=== PATIENT | female | born 1975 | race Caucasian/White ===

== ENCOUNTER 2018-11-09 02:22 | Outpatient (CLI) | payer BC, SELFPAY ==
[2018-11-09 11:05] LABS: Albumin 3.9 g/dL (3.4-5.0); Alkaline Phosphatase 64 U/L (46-116); BUN 14 mg/dL (7-18); Bilirubin, Total 0.5 mg/dL (0.2-1.0); CREATININE 0.99 mg/dL (0.55-1.02); Calcium 8.8 mg/dL (8.5-10.1); Cholesterol 194 mg/dL (50-200); Glucose 113 mg/dL (70-100); HDL Cholesterol 58 mg/dL (40-60); LDL CHOLESTEROL 119 mg/dL (<100); Total Protein 7.8 g/dL (6.4-8.2); Triglyceride 55 mg/dL (30-150)
[2018-11-09 11:06] LABS: ALT 16 U/L (12-78); AST 16 U/L (15-37); Anion Gap 7.9 mmol/L (3-11); CO2 30.1 mmol/L (21.0-32.0); Chloride 102 mmol/L (98-107); Potassium 4.4 mmol/L (3.5-5.1); Sodium 140 mmol/L (136-145)
== END 2018-11-09 02:42 ==
DX: Z00.00 Encounter for general adult medical examination without abnormal findings (principal); E03.9 Hypothyroidism, unspecified; F32.9 Major depressive disorder, single episode, unspecified; Z13.220 Encounter for screening for lipoid disorders
CPT/HCPCS: 36415; 80053; 80061; 83721

== ENCOUNTER 2019-02-18 13:50 | Emergency (ER) | payer BC, SELFPAY ==
[2019-02-18 13:54] VITALS: BP 156/93; PULSE 116; RESP 20; TEMP 37.2; O2SAT 100
--- NOTE | 2019-02-18 14:03 | W.ED.GENAD ---
Discharge Plan Disposition Patient Disposition: HOME Condition: Improving Discharge Details Chief Complaint: RespSymp Clinical Impression: Acute bronchitis Primary Care Provider: Bren Carrillo ED Provider: Vic Gregory Home Meds and New Rx's Prescriptions: New guaifenesin [Mucinex] 600 mg tablet extended release 12hr 600 mg PO Q12H PRN (Reason: cold symptoms) Qty: 10 RF: 0 benzonatate [Tessalon Perles] 100 mg capsule 100 mg PO TID PRN (Reason: cough) Qty: 20 RF: 0 azithromycin 250 mg tablet See Rx Instructions .ROUTE .COMPLEX Qty: 6 RF: 0 No Action acetaminophen [Tylenol Extra Strength] 500 MG tablet 1,000 mg PO Q4H PRN RF: 0 ibuprofen 200 MG tablet 3 - 4 tab PO BID PRNRF: 0 multivitamin [Daily Multi-Vitamin] 1 EACH tablet 1 ea PO DAILY RF: 0 triamcinolone acetonide 80 GM ointment 80 gm Topical BID Qty: 1 RF: 1 bupropion HCl [Wellbutrin SR] 150 mg tablet sustained-release 12 hr 150 mg PO DAILY Qty: 30 RF: 11 hydroxyzine HCl 25 mg tablet 25 mg PO TID PRN (Reason: itching) Qty: 30 RF: 1 Discharge Instructions Instructions: Acute Bronchitis (ED) Additional Instructions: Follow-up with regular doctor if not improving in 5 to 7 days time. May use the provided albuterol as needed during times of illness. 1 to 2 puffs every 4 hours. Use with spacer. May use Tessalon as needed for cough control as well as Mucinex. Take antibiotics as prescribed. Please do not use your hydroxyzine at the same time is taking azithromycin. Medical Decision Making 44-year-old female presents with 1 week of cough, congestion, production sputum. Ongoing paroxysms of cough today with increasing chest congestion. She is afebrile with normal oxygenation. Lungs are clear without rhonchi. Do not feel chest x-ray will alter management. Discussed her that I feel that she will benefit from an inhaler to help in aborting paroxysms of cough. We will add both Mucinex, cough suppressant, a course of azithromycin to cover atypical infections. She is stable for outpatient management. HPI General Mode of arrival: ambulatory. Date/Time Provider Initiated Documentation: 02/18/19 13:55. Limitations to Documentation: no limitations. Information obtained by: patient. History of Present Illness 44 year old F presents to the emergency department with the chief complaint of Cough and congestion with production of sputum for 1wk, described as moderate, Quality is described as dull and constant, and is localized to the chest. Patient reports no radiation. Patient started experiencing this day(s) and it has been intermittent. No relieving factors improve symptom(s), No exacerbating factors reported . Patient notes cough and fever/chills; denies shortness of breath and syncope. Patient did receive the following treatments prior to arrival, other Related Data Home Medications Medication Instructions Recorded Confirmed acetaminophen [Tylenol Extra 1,000 mg PO Q4H PRN tab-cap 03/19/16 02/18/19 Strength] ibuprofen 3 - 4 tab PO BID PRN 04/15/16 02/18/19 multivitamin [Multi-Vitamin Daily] 1 ea PO DAILY 02/19/17 02/18/19 triamcinolone acetonide 80 gm TOPICAL BID #1 tube 09/25/17 02/18/19 bupropion HCl SR 150 mg tablet,12 150 mg PO DAILY #30 tab 01/13/19 02/18/19 hr sustained-release hydroxyzine HCl 25 mg tablet 25 mg PO TID PRN #30 tab 01/13/19 02/18/19 azithromycin See Rx Instructions .ROUTE 02/18/19 .COMPLEX #6 tab benzonatate [Tessalon Perles] 100 mg PO TID PRN #20 cap 02/18/19 guaifenesin [Mucinex] 600 mg PO Q12H PRN #10 tab 02/18/19 Previous Rx's Medication Instructions Recorded triamcinolone acetonide 80 gm TOPICAL BID #1 tube 09/25/17 bupropion HCl SR 150 mg tablet,12 150 mg PO DAILY #30 tab 01/13/19 hr sustained-release hydroxyzine HCl 25 mg tablet 25 mg PO TID PRN #30 tab 01/13/19 azithromycin See Rx Instructions .ROUTE 02/18/19 .COMPLEX #6 tab benzonatate [Tessalon Perles] 100 mg PO TID PRN #20 cap 02/18/19 guaifenesin [Mucinex] 600 mg PO Q12H PRN #10 tab 02/18/19 Allergies Allergy/AdvReac Type Severity Reaction Status Date / Time codeine AdvReac Intermediate Dizziness/L Verified 02/18/19 13:56 ightheade escitalopram AdvReac Intermediate Low Labido Verified 02/18/19 13:56 General Stated Complaint: RespSymp JARED: 3 Review of Systems Review of Systems Production of yellow sputum, subjective fever and chills. Still taking liquids and solids by mouth at difficulty. No chest pain or shortness of breath. Sick systems reviewed and otherwise negative [facility] Medical History Healthcare maintenance (Acute) Right hip pain (Chronic 04/15/16) Nonintractable episodic headache (Acute 06/17/16) Dermatitis (Chronic 09/18/16) Depression (Chronic 09/18/16) Contusion of right knee, subsequent encounter (Suspected 09/09/16) Cervical radiculopathy (Chronic 07/21/14) JAILENE I (cervical intraepithelial neoplasia I) (Acute) Abdominal bloating (Chronic 11/20/16) Surgical History Ligation of fallopian tube Tooth extraction Family History Mother No problems noted. Father Alcohol abuse Arthritis Cancer Brother No problems noted. Brother No problems noted. Brother Diabetes Depression Neoplasm Stroke Maternal Grandfather No problems noted. Paternal Grandfather No problems noted. Maternal Grandmother No problems noted. Paternal Grandmother No problems noted. 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 and animals: Yes Pets and animals: dog(s) Sexually active: Yes What is your relationship status?: living with partner How often do you talk on the phone with friends or family?: once per week How often do you get together with friends or relatives?: once per week How often do you attend worship or gnosticism services?: decline to answer Do you belong to any clubs or organized social groups?: no Panel score (0-1 are the most socially isolated patients): 1 What type of physical activity do you participate in: walking Duration: < 15 minutes/day Frequency: 3-4 times per week Melanie/Latter Day: None Special melanie needs: No Do you feel safe at home: Yes Do you feel safe in your relationship?: Yes Exam Narrative Exam Narrative: GEN: awake, alert, oriented 3. Pleasant, well groomed, interactive. HEAD: Normocephalic, atraumatic ENT: Mucous membranes moist, oropharynx unremarkable, External ear exam unremarkable EYES: PERRL, EOMI NECK: Full ROM, no NOAH, no menigismus CHEST/RESP: Nontender, clear to auscultation bilateral, cough noted, no wheeze CARDIOVASCULAR: Not tachycardic at the time of my exam RRR, no murmur, rub rudy. 2+ Rad pulse bilateral ABDOMEN: Soft, nontender, no mass. +Bowel sounds EXT: Full ROM, no edema, no rash Neuro: Grossly normal neurologic exam, conversant, interactive. Psych: Speech fluent, thoughts congruent, affect normal Course Vital Signs Temperature 37.2 C 02/18/19 13:54 Pulse 116 H 02/18/19 13:54 Respiratory Rate 20 02/18/19 13:54 Blood Pressure 156/93 H 02/18/19 13:54 Pulse Oximetry 100 02/18/19 13:54 Temperature 37.2 C 02/18/19 13:54 Temperature Source Temporal Artery Scan 02/18/19 13:54 Pulse 116 H 02/18/19 13:54 Respiratory Rate 20 02/18/19 13:54 Respiratory Effort Non-Labored 02/18/19 13:56 Respiratory Depth Normal 02/18/19 13:56 Blood Pressure 156/93 H 02/18/19 13:54 Blood Pressure Position Sitting 02/18/19 13:54 Pulse Oximetry 100 02/18/19 13:54 Oxygen Delivery Method Room Air 02/18/19 13:54 Oxygen Flow Rate 0 02/18/19 13:54
--- NOTE | 2019-02-18 14:07 | ED.GENADUL_ITS ---
Discharge Plan Disposition Patient Disposition: HOME Condition: Improving Discharge Details Chief Complaint: RespSymp Clinical Impression: Acute bronchitis Primary Care Provider: Bren Carrillo ED Provider: Vic Gregory Home Meds and New Rx's Prescriptions: New guaifenesin [Mucinex] 600 mg tablet extended release 12hr 600 mg PO Q12H PRN (Reason: cold symptoms) Qty: 10 RF: 0 benzonatate [Tessalon Perles] 100 mg capsule 100 mg PO TID PRN (Reason: cough) Qty: 20 RF: 0 azithromycin 250 mg tablet See Rx Instructions .ROUTE .COMPLEX Qty: 6 RF: 0 No Action acetaminophen [Tylenol Extra Strength] 500 MG tablet 1,000 mg PO Q4H PRN RF: 0 ibuprofen 200 MG tablet 3 - 4 tab PO BID PRNRF: 0 multivitamin [Daily Multi-Vitamin] 1 EACH tablet 1 ea PO DAILY RF: 0 triamcinolone acetonide 80 GM ointment 80 gm Topical BID Qty: 1 RF: 1 bupropion HCl [Wellbutrin SR] 150 mg tablet sustained-release 12 hr 150 mg PO DAILY Qty: 30 RF: 11 hydroxyzine HCl 25 mg tablet 25 mg PO TID PRN (Reason: itching) Qty: 30 RF: 1 Discharge Instructions Instructions: Acute Bronchitis (ED) Additional Instructions: Follow-up with regular doctor if not improving in 5 to 7 days time. May use the provided albuterol as needed during times of illness. 1 to 2 puffs every 4 hours. Use with spacer. May use Tessalon as needed for cough control as well as Mucinex. Take antibiotics as prescribed. Please do not use your hydroxyzine at the same time is taking azithromycin. Medical Decision Making 44-year-old female presents with 1 week of cough, congestion, production sputum. Ongoing paroxysms of cough today with increasing chest congestion. She is afebrile with normal oxygenation. Lungs are clear without rhonchi. Do not feel chest x-ray will alter management. Discussed her that I feel that she will benefit from an inhaler to help in aborting paroxysms of cough. We will add both Mucinex, cough suppressant, a course of azithromycin to cover atypical infections. She is stable for outpatient management. HPI General Mode of arrival: ambulatory . Date/Time Provider Initiated Documentation: 02/18/19 13:55 . Limitations to Documentation: no limitations . Information obtained by: patient . History of Present Illness 44 year old F presents to the emergency department with the chief complaint of Cough and congestion with production of sputum for 1wk, described as moderate, Quality is described as dull and constant, and is localized to the chest. Patient reports no radiation. Patient started experiencing this day(s) and it has been intermittent. No relieving factors improve symptom(s), No exacerbating factors reported . Patient notes cough and fever/chills; denies shortness of breath and syncope. Patient did receive the following treatments prior to arrival, other Related Data Home Medications Medication Instructions Recorded Confirmed acetaminophen [Tylenol Extra 1,000 mg PO Q4H PRN tab-cap 03/19/16 02/18/19 Strength] ibuprofen 3 - 4 tab PO BID PRN 04/15/16 02/18/19 multivitamin [Multi-Vitamin Daily] 1 ea PO DAILY 02/19/17 02/18/19 triamcinolone acetonide 80 gm TOPICAL BID #1 tube 09/25/17 02/18/19 bupropion HCl SR 150 mg tablet,12 150 mg PO DAILY #30 tab 01/13/19 02/18/19 hr sustained-release hydroxyzine HCl 25 mg tablet 25 mg PO TID PRN #30 tab 01/13/19 02/18/19 azithromycin See Rx Instructions .ROUTE 02/18/19 .COMPLEX #6 tab benzonatate [Tessalon Perles] 100 mg PO TID PRN #20 cap 02/18/19 guaifenesin [Mucinex] 600 mg PO Q12H PRN #10 tab 02/18/19 Previous Rx's Medication Instructions Recorded triamcinolone acetonide 80 gm TOPICAL BID #1 tube 09/25/17 bupropion HCl SR 150 mg tablet,12 150 mg PO DAILY #30 tab 01/13/19 hr sustained-release hydroxyzine HCl 25 mg tablet 25 mg PO TID PRN #30 tab 01/13/19 azithromycin See Rx Instructions .ROUTE 02/18/19 .COMPLEX #6 tab benzonatate [Tessalon Perles] 100 mg PO TID PRN #20 cap 02/18/19 guaifenesin [Mucinex] 600 mg PO Q12H PRN #10 tab 02/18/19 Allergies Allergy/AdvReac Type Severity Reaction Status Date / Time codeine AdvReac Intermediate Dizziness/L Verified 02/18/19 13:56 ightheade escitalopram AdvReac Intermediate Low Labido Verified 02/18/19 13:56 General Stated Complaint: RespSymp JARED: 3 Review of Systems Review of Systems Production of yellow sputum, subjective fever and chills. Still taking liquids and solids by mouth at difficulty. No chest pain or shortness of breath. Sick systems reviewed and otherwise negative [facility] Medical History Healthcare maintenance (Acute) Right hip pain (Chronic 04/15/16) Nonintractable episodic headache (Acute 06/17/16) Dermatitis (Chronic 09/18/16) Depression (Chronic 09/18/16) Contusion of right knee, subsequent encounter (Suspected 09/09/16) Cervical radiculopathy (Chronic 07/21/14) JAILENE I (cervical intraepithelial neoplasia I) (Acute) Abdominal bloating (Chronic 11/20/16) Surgical History Ligation of fallopian tube Tooth extraction Family History Mother No problems noted. Father Alcohol abuse Arthritis Cancer Brother No problems noted. Brother No problems noted. Brother Diabetes Depression Neoplasm Stroke Maternal Grandfather No problems noted. Paternal Grandfather No problems noted. Maternal Grandmother No problems noted. Paternal Grandmother No problems noted. 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 and animals: Yes Pets and animals: dog(s) Sexually active: Yes What is your relationship status?: living with partner How often do you talk on the phone with friends or family?: once per week How often do you get together with friends or relatives?: once per week How often do you attend adventist or yarsanism services?: decline to answer Do you belong to any clubs or organized social groups?: no Panel score (0-1 are the most socially isolated patients): 1 What type of physical activity do you participate in: walking Duration: < 15 minutes/day Frequency: 3-4 times per week Melanie/Shinto: None Special melanie needs: No Do you feel safe at home: Yes Do you feel safe in your relationship?: Yes Exam Narrative Exam Narrative: GEN: awake, alert, oriented 3. Pleasant, well groomed, interactive. HEAD: Normocephalic, atraumatic ENT: Mucous membranes moist, oropharynx unremarkable, External ear exam unremarkable EYES: PERRL, EOMI NECK: Full ROM, no NOAH, no menigismus CHEST/RESP: Nontender, clear to auscultation bilateral, cough noted, no wheeze CARDIOVASCULAR: Not tachycardic at the time of my exam RRR, no murmur, rub rudy. 2+ Rad pulse bilateral ABDOMEN: Soft, nontender, no mass. +Bowel sounds EXT: Full ROM, no edema, no rash Neuro: Grossly normal neurologic exam, conversant, interactive. Psych: Speech fluent, thoughts congruent, affect normal Course Vital Signs Temperature 37.2 C 02/18/19 13:54 Pulse 116 H 02/18/19 13:54 Respiratory Rate 20 02/18/19 13:54 Blood Pressure 156/93 H 02/18/19 13:54 Pulse Oximetry 100 02/18/19 13:54 Temperature 37.2 C 02/18/19 13:54 Temperature Source Temporal Artery Scan 02/18/19 13:54 Pulse 116 H 02/18/19 13:54 Respiratory Rate 20 02/18/19 13:54 Respiratory Effort Non-Labored 02/18/19 13:56 Respiratory Depth Normal 02/18/19 13:56 Blood Pressure 156/93 H 02/18/19 13:54 Blood Pressure Position Sitting 02/18/19 13:54 Pulse Oximetry 100 02/18/19 13:54 Oxygen Delivery Method Room Air 02/18/19 13:54 Oxygen Flow Rate 0 02/18/19 13:54
[2019-02-18 14:29] VITALS: BP 156/93; PULSE 116; RESP 20; TEMP 37.2; O2SAT 100
[2019-02-18] MEDS: Benzonatate 100 MG CAP 200 MG PO (14:29)
[2019-02-18] MEDS: Albuterol HFA 8 GM 60 PUFF INH IH (14:29)
== END 2019-02-18 14:30 | disposition home or self-care (01) ==
PROVIDERS: Emergency Provider Emergency Medicine
DX: J20.9 Acute bronchitis, unspecified (principal)
CPT/HCPCS: 99283

== ENCOUNTER 2019-12-09 00:33 | Outpatient (CLI) | payer BC, SELFPAY ==
--- NOTE | 2019-12-09 08:00 | DI.MAMMO_ITS ---
EXAM: MAMMO SCREENING CLINICAL HISTORY: screening, Z12.39, BASELINE TECHNIQUE: Mammograms were interpreted according to the usual protocol including computer analysis w [employer] CAD system, tomosynthesis and C-view imaging. FINDINGS: The breasts are heterogeneously dense. No dominant mass or clumped microcalcification is identified in either breast. No prior studies available for comparison, this is a baseline examination. IMPRESSION: No specific evidence of malignancy at this time. Routine screening examinations are suggested at year ly intervals in this age group according the ACR guidelines. Category 1. Breast density, category C. BI-RADS Cat 1 - Negative. Breast Density - Category C - Heterogeneously dense.
[2019-12-09 08:20] LABS: Anion Gap 5.2 mmol/L (3-11); BUN 12 mg/dL (7-18); CO2 30.8 mmol/L (21.0-32.0); CREATININE 0.98 mg/dL (0.55-1.02); Calcium 8.6 mg/dL (8.5-10.1); Chloride 105 mmol/L (98-107); Glucose 91 mg/dL (74-106); Potassium 4.2 mmol/L (3.5-5.1); Sodium 141 mmol/L (136-145)
[2019-12-10 09:44] LABS: FSH 80.4 mIU/mL (See Note)
== END 2019-12-09 00:53 ==
DX: Z00.00 Encounter for general adult medical examination without abnormal findings (principal); Z12.31 Encounter for screening mammogram for malignant neoplasm of breast; R14.0 Abdominal distension (gaseous); N95.1 Menopausal and female climacteric states
CPT/HCPCS: 36415; 77063; 77067; 80048; 83001

== ENCOUNTER 2020-02-11 08:07 | Outpatient (CLI) | payer BC, SELFPAY ==
--- NOTE | 2020-02-11 08:15 | DI.RAD_ITS ---
EXAM: XR SHOULDER LT COMPLETE 2+V CLINICAL HISTORY: not improving with PT conservative treatment, chronic pain, M25.512. TECHNIQUE: 2D digital imaging was performed. COMPARISON: No exams were available for comparison FINDINGS: The glenohumeral joint and acromioclavicular joints are well maintained. The bones are normally mine ralized. No acute fracture or dislocation is present. Extensive calcification is seen adjacent to t he greater tuberosity suspicious for calcific tendinitis. The soft tissues are otherwise unremarkabl e. IMPRESSION: Findings of calcific tendinitis of the left shoulder. DATA REPOSITORY: RADIATION DOSE DELIVERED:
== END 2020-02-11 08:27 ==
DX: M25.512 Pain in left shoulder (principal); M75.32 Calcific tendinitis of left shoulder; G89.29 Other chronic pain
CPT/HCPCS: 73030

== ENCOUNTER 2020-02-14 01:39 | Emergency (ER) | payer BC, SELFPAY ==
[2020-02-14 01:47] VITALS: BP 158/111; PULSE 97; RESP 16; TEMP 37; O2SAT 97
[2020-02-14] MEDS: Lidocaine 5% Patch 1 PATCH TP (02:04)
[2020-02-14] MEDS: Ketorolac 30 MG/ML VIAL IM (02:05)
[2020-02-14] MEDS: Acetaminophen 500 MG TAB 1000 MG PO (02:05)
[2020-02-14] MEDS: predniSONE 20 MG TAB 60 MG PO (02:05)
--- NOTE | 2020-02-14 02:32 | W.ED.GENAD ---
Discharge Plan Disposition Patient Disposition: HOME Condition: Good Discharge Details Chief Complaint: Orthopedic Clinical Impression: Chronic left shoulder pain, Calcifying tendinitis of left shoulder Primary Care Provider: Bren Carrillo ED Provider: Roger Duong Home Meds and New Rx's Prescriptions: New lidocaine [Lidoderm] 1 PATCH patch 1 patch Topical Q24H Qty: 4 RF: 0 prednisone 50 MG tablet 50 mg PO DAILY Qty: 5 RF: 0 Continued baclofen 10 mg tablet 10 mg PO BID MDD 20mg PRN (Reason: sciatica) Qty: 20 RF: 0 acetaminophen [Tylenol Extra Strength] 500 MG tablet 1,000 mg PO Q4H PRN RF: 0 ibuprofen 200 MG tablet 3 - 4 tab PO BID PRNRF: 0 triamcinolone acetonide 80 GM ointment 80 gm Topical BID Qty: 1 RF: 1 hydroxyzine HCl 25 mg tablet 25 mg PO TID PRN (Reason: itching) Qty: 30 RF: 1 bupropion HCl 300 mg tablet extended release 24 hr 300 mg PO QAM Qty: 90 RF: 3 guaifenesin [Mucinex] 600 mg tablet extended release 12hr 600 mg PO Q12H PRN (Reason: cold symptoms) Qty: 10 RF: 0 Discharge Instructions Instructions: Tendinitis (ED) Additional Instructions: Pain in your left shoulder secondary to a large calcification on your tendon. Please continue to take 1000 mg of Tylenol every 6 hours and your naproxen every 12 hours as directed. Please continue to use the Lidoderm patches and the steroid as directed. Please follow-up closely with your employee benefits specialist. We will place a referral for you. Continue to attempt to move your shoulder in all directions to prevent adhesive capsulitis. If you notice any worsening of your symptoms, or any new symptoms such as vomiting, diarrhea, fever, chills, shortness of breath, chest pain, numbness, weakness, or fainting , please return immediately to the emergency department for reevaluation. Please follow up with your primary care provider as soon as possible for reassessment and reevaluation. As always, it was a pleasure participating in your medical care today. Referrals: Bren Carrillo, NILAY [Primary Care Provider] - Vic Khan MD [ [facility] STAFF PHYSICIAN] - Klever Albright MD [ [facility] STAFF PHYSICIAN] - Herbert Layton MD [ [facility] STAFF PHYSICIAN] - Medical Decision Making 44-year-old female with a past medical history of calcified tendinosis of the left shoulder has been present for the last few years, recently got an x-ray showing notable calcification of the tendons of the shoulder, recent orthopedic referral whom she has not yet gotten an appointment for. Presents this evening secondary to the pain being continuing to get worse, and her being unable to sleep this evening. Physical exam demonstrates notable reproducible tenderness over the calcified tendon/biceps tendon itself at the proximal insertion site of the left shoulder. Tender with all ranges of motion. Symptoms clinically inconsistent with cardiac etiology and notably clinically consistent with calcified tendinitis. No indication for repeat imaging at this time. Lidoderm patch was applied, Tylenol was given, and Toradol and steroids were given. Patient had notable improvement of her symptoms. Will discharge home with continued recommendation for Tylenol, Motrin, Lidoderm patches and outpatient steroids. Discussed the importance of follow-up. Will place orthopedic referral. I have extensively reviewed the treatment plan and discharge instructions with the patient. I have addressed all patient concerns at this time. The patient was made aware of what symptoms to monitor for that would warrant a return to the emergency department. Discussed the plan with the patient, they demonstrate verbal understanding and agreement with our assessment and plan at this time. HPI General Date/Time Provider Initiated Documentation: 02/14/20 01:40. HPI Narrative: 44-year-old female presents today for chronic left shoulder pain. Over the last few years she has had notable pain in the left shoulder, more recently she has had increasing pain in the left shoulder, she has been taking Tylenol and naproxen but this is not been helping like it used to. Recent x-ray by her PCP does show notable calcified tendinosis versus tendinitis. She has been given recently a referral for outpatient follow-up with the employee benefits specialist in [facility]. She presents tonight because she cannot sleep secondary to the severity of the pain. She denies any radiation to the chest. She denies any chest pain chest heaviness chest tightness history of cardiac disease or family history of cardiac disease. No history of hypertension high cholesterol or diabetes or tobacco abuse. Pain is only made worse with movement and palpation. No exertional component. She did take muscle relaxer at home but this did not help. No other complaints at this time. Related Data Home Medications Medication Instructions Recorded Confirmed acetaminophen [Tylenol Extra 1,000 mg PO Q4H PRN tab-cap 03/19/16 02/14/20 Strength] ibuprofen 3 - 4 tab PO BID PRN 04/15/16 02/14/20 triamcinolone acetonide 80 gm TOPICAL BID #1 tube 09/25/17 02/14/20 hydroxyzine HCl 25 mg tablet 25 mg PO TID PRN #30 tab 01/13/19 02/14/20 guaifenesin [Mucinex] 600 mg PO Q12H PRN #10 tab 02/18/19 02/14/20 bupropion HCl 300 mg 24 hr tablet, 300 mg PO QAM #90 tab 11/15/19 02/14/20 extended release baclofen 10 mg tablet 10 mg PO BID PRN #20 tab MDD 20mg 02/10/20 02/14/20 lidocaine [Lidoderm] 1 patch TOPICAL Q24H #4 patch 02/14/20 prednisone 50 mg PO DAILY #5 tab 02/14/20 Previous Rx's Medication Instructions Recorded triamcinolone acetonide 80 gm TOPICAL BID #1 tube 09/25/17 hydroxyzine HCl 25 mg tablet 25 mg PO TID PRN #30 tab 01/13/19 guaifenesin [Mucinex] 600 mg PO Q12H PRN #10 tab 02/18/19 bupropion HCl 300 mg 24 hr tablet, 300 mg PO QAM #90 tab 11/15/19 extended release baclofen 10 mg tablet 10 mg PO BID PRN #20 tab MDD 20mg 02/10/20 lidocaine [Lidoderm] 1 patch TOPICAL Q24H #4 patch 02/14/20 prednisone 50 mg PO DAILY #5 tab 02/14/20 Allergies Allergy/AdvReac Type Severity Reaction Status Date / Time codeine AdvReac Intermediate Dizziness/L Verified 11/09/19 13:29 ightheade escitalopram AdvReac Intermediate Low Labido Verified 11/09/19 13:29 General Stated Complaint: Orthopedic JARED: 4 Review of Systems All systems reviewed & are unremarkable except as noted in HPI and below PFSH Social History Smoking/Tobacco Use Status: Never Alcohol Intake: former Drug use: Never Substance use type: does not use Counseling given: No Counseling provided: none Caregiver/Support person: No Household members: other Details: Yuri Oseas, Kj Oseas, Adair Oseas, Ruth Berman Housing: house Communication Needs: None Do you need help understanding health information?: Never 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 Pets and animals: Yes Pets and animals: dog(s) Sexually active: Yes Current gender identity: male What is your relationship status?: living with partner How often do you talk on the phone with friends or family?: once per week How often do you get together with friends or relatives?: once per week How often do you attend adventist or denominational services?: decline to answer Do you belong to any clubs or organized social groups?: no Panel score (0-1 are the most socially isolated patients): 1 What type of physical activity do you participate in: walking Duration: < 15 minutes/day Frequency: 3-4 times per week Melanie/Orthodox: None Special melanie needs: No Seatbelt use: always Helmet use: Yes Helmet use: always Drive intox or ride w/intox funeral driver: No Do you feel safe at home: Yes Do you feel safe in your relationship?: Yes Exam Narrative Exam Narrative: 1.Const: Well-nourished, Well-developed, appearing stated age 2.Eyes: PERRL, no conjunctival injection, and symmetrical lids. 3.ENT: Atraumatic external nose and ears. Moist MM. Neck: Symmetric, trachea midline, No thyromegaly. 4.CVS: +S1/S2, No murmurs or gallops. Peripheral pulses 2+ and equal in all extremities. Brisk capillary refill in all extremities. 5.RESP: Unlabored respiratory effort. Clear to auscultation bilaterally. No wheezes rales or rhonchi 6.GI: Soft, Nontender/Nondistended, No hepatosplenomegaly. No guarding or rebound. 7.MSK: Normocephalic/Atraumatic, Extremities w/o deformity. No cyanosis or clubbing, left shoulder: Left shoulder demonstrates notable point tenderness over the proximal aspect of the biceps tendon, with mild calcified protrusion subcutaneously. This is the focus of the patient's pain, shoulder is tender for every direction of movement, no crepitus though. No redness warmth or signs of infection. No pain anywhere else. 8.Skin: Warm, Dry. No rashes or lesions. 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 Sensation grossly intact, no focal neurologic deficits. 10.Psych: (AAO) x3. Appropriate mood and affect Course Vital Signs Vital signs: Vital Signs Temperature 37.0 C 02/14/20 01:47 Pulse 97 H 02/14/20 01:47 Respiratory Rate 16 02/14/20 01:47 Blood Pressure 158/111 H 02/14/20 01:47 Pulse Oximetry 97 02/14/20 01:47 Temperature 37.0 C 02/14/20 01:47 Temperature Source Skin 02/14/20 01:47 Pulse 97 H 02/14/20 01:47 Respiratory Rate 16 02/14/20 01:47 Respiratory Effort 02/14/20 02:16 Blood Pressure 158/111 H 02/14/20 01:47 Blood Pressure Position Sitting 02/14/20 01:47 Pulse Oximetry 97 02/14/20 01:47 Oxygen Delivery Method Room Air 02/14/20 01:47 Oxygen Flow Rate 0 02/14/20 01:47 Pain Level 10 02/14/20 02:16
== END 2020-02-14 02:45 | disposition home or self-care (01) ==
PROVIDERS: Emergency Provider Student in an Organized Health Care Education/Training Program
DX: M25.512 Pain in left shoulder (principal); G89.29 Other chronic pain; M75.32 Calcific tendinitis of left shoulder
CPT/HCPCS: 93005; 96372; 99284; 93010; J1885; J7512

== ENCOUNTER 2020-03-03 08:02 | Outpatient (CLI) | payer BC, SELFPAY ==
[2020-03-04 00:54] LABS: COVID-19 RT-PCR UVMMC Result Negative (Negative)
== END 2020-03-03 08:22 ==
PROVIDERS: Visit Provider Orthopaedic Surgery
DX: Z11.59 Encounter for screening for other viral diseases (principal); Z01.818 Encounter for other preprocedural examination
CPT/HCPCS: U0003

== ENCOUNTER 2020-03-06 08:55 | Day surgery (SDC) | payer BC, SELFPAY ==
[2020-03-06 09:17] VITALS: BP 151/88; PULSE 88; RESP 18; TEMP 36.4; O2SAT 100
[2020-03-06] MEDS: Lactated Ringers 1,000 ML 80 ML IV (10:00)
[2020-03-06] MEDS: ceFAZolin 1 GM/50 ML BAG IVPB (11:41)
--- NOTE | 2020-03-06 12:25 | DI.RAD_ITS ---
EXAM: XR SHOULDER LT COMPLETE 2+V CLINICAL HISTORY: BONE SPUR. TECHNIQUE: 2D and realtime digital imaging was performed. COMPARISON: No exams were available for comparison FINDINGS: Fluoroscopy was provided in the OR for guidance with orthopedic procedure. Please see procedure note for details. FLUORO TIME: 10.7 seconds RADIATION DOSE DELIVERED:
--- NOTE | 2020-03-06 12:33 | W.PM.DSUDISC ---
Discharge Plan Disposition Patient Disposition: HOME Condition: Good Discharge Details Reason For Visit: EXCISION OF CALCIUM DEPOSIT L SHOULDER. Attending Provider: Vic Khan Primary Care Provider: Bren Carrillo Home Meds and New Rx's Prescriptions: New hydrocodone-acetaminophen 5-325 mg tablet 1 tab PO Q6H PRN (Reason: pain) Qty: 10 RF: 0 ibuprofen 600 mg tablet 600 mg PO TID Qty: 30 RF: 0 Continued baclofen 10 mg tablet 10 mg PO BID MDD 20mg PRN (Reason: sciatica) Qty: 20 RF: 0 acetaminophen [Tylenol Extra Strength] 500 MG tablet 1,000 mg PO Q4H PRN RF: 0 ibuprofen 200 MG tablet 3 - 4 tab PO BID PRNRF: 0 triamcinolone acetonide 80 GM ointment 80 gm Topical BID Qty: 1 RF: 1 hydroxyzine HCl 25 mg tablet 25 mg PO TID PRN (Reason: itching) Qty: 30 RF: 1 lidocaine [Lidoderm] 1 PATCH patch 1 patch Topical Q24H Qty: 4 RF: 0 prednisone 50 MG tablet 50 mg PO DAILY Qty: 5 RF: 0 bupropion HCl 300 mg tablet extended release 24 hr 300 mg PO QHS RF: 0 guaifenesin [Mucinex] 600 mg tablet extended release 12hr 600 mg PO Q12H PRN (Reason: cold symptoms) Qty: 10 RF: 0 Discharge Instructions Additional Instructions: Sling for comfort. May take L arm out of sling as often and for as long as your pain allows. Discontinue sling when you no longer need it. Apply icebag to L shoulder 4 times/day for 1 hour each time over next 3 days. May shower and get dressing wet on . Let dressing gradually come off by itself, don't pull it off. Take ibuprofen 3 times/day for 10 days to decrease inflammation. Take hydrocodone for breakthrough pain, if needed. Follow up with in one week. Referrals: Vic Khan MD [ [facility] STAFF PHYSICIAN] - (f/u in one week.) Equipment/Supplies: Sling Activity:: Activity as Tolerated Remove Dressings/Wound Care:: Do Not Remove Shower/Bathe:: 72 hours Diet:: As Tolerated Discharge Orders Discharge Orders: Discharge Order (Routine); Ordered 03/06/20 Ordered By: Vic Khan DS: Diagnosis Discharge Diagnosis (1) Calcifying tendinitis of left shoulder: Status: Acute
[2020-03-06 12:49] VITALS: BP 155/100; PULSE 83; RESP 16; TEMP 36; O2SAT 97
[2020-03-06 12:54] VITALS: BP 153/91; PULSE 79; RESP 16; TEMP 36; O2SAT 97
[2020-03-06 12:59] VITALS: BP 158/100; PULSE 82; RESP 16; TEMP 36; O2SAT 97
[2020-03-06 13:14] VITALS: BP 146/93; PULSE 77; RESP 16; TEMP 36; O2SAT 100
[2020-03-06 13:51] VITALS: BP 122/78; PULSE 76; RESP 18; TEMP 35.9; O2SAT 100
[2020-03-06] MEDS: oxyCODONE 5 MG TAB 10 MG PO (14:09)
--- NOTE | 2020-03-07 08:33 | W.PM.OP ---
Date of service: 03/06/20 Time of Service: 08:33 Operative Note Operative Note DATE OF PROCEDURE: 03/06/20 PRE-OP DIAGNOSIS: Calcific tendinitis left shoulder POST-OP DIAGNOSIS: same PROCEDURE: Excision of calcific deposit left shoulder SURGEON: Vic Khan ANESTHESIA: GETCarlos ESTIMATED BLOOD LOSS: 0 PATHOLOGY: none sent COMPLICATIONS: None Patient was transported to: PACU Patient's condition: stable Indications: Is a 45-year-old white female with known calcific tendinitis of her left shoulder of several years duration. She has been minimally symptomatic until a couple of months ago when the pain began to increase. She got to the point where she could not sleep. She presented to the emergency room on February 19 because she can no longer tolerate the pain. X-rays showed a very large calcific deposit proximal to the tuberosity. Because of the size of the deposit and the severity of her pain I felt that surgical excision/decompression was indicated to alleviate her pain. The risk on case procedure explained patient detail preop. Procedure Description: Patient was taken to the operating room on 03/06/2020 where she was given a general anesthetic in the supine position. She was then placed in the roberts chair position the left shoulder was prepped and draped free in usual sterile fashion. Utilizing a spinal needle and C arm image intensification I localized the calcium deposit. It was located just distal to the anterolateral corner of the acromion. A deltoid splitting incision was made of about 3 inches in length. Bleeders were cauterized. As I went to the deep deltoid fascia I incised and collection of liquid calcium. He was under pressure and came out of the wound as if I had incised an abscess. I debrided some calcium from the supraspinatus tendon irrigated thoroughly. There was a partial-thickness defect on the bursal surface of the supraspinatus. This was simply repaired with interrupted 2-0 Vicryl sutures. Wounds irrigated with saline solution the wound margins over 2.5 some Marcaine solution. The deltoid fascia was approximated with a running interlocked 4-0 Monocryl. Subcu was approximated with few interrupted 2-0 Vicryl sutures and then a running subcuticular suture of 3-0 Monocryl was performed supplemented by tissue glue and Steri-Strips. Mepilex dressing was applied. The left arm was placed in a sling. Patient's anesthesia reversed complication she tolerated procedure well blood loss was minimal. She was discharged to recovery room good condition. Patient was discharged home from day surgery when fully recovered from her general anesthesia. She is given instructions to use a sling on left arm for comfort. She may take her left arm out of the sling is off and and for as long as her discomfort allows. She can discontinue the sling when she no longer needs it. She may shower and get her dressing wet in 72 hours. She is to leave the dressing in place and let her follow-up by itself. She is given a prescription for inflammation of ibuprofen 60 mg p.o. 3 times daily for 10 days. She is given a prescription for a breakthrough pain of hydrocodone with APAP 01/22/2025 1 tablet every 6 hours as needed. She will follow-up with Dr. Khan in 2 weeks
== END 2020-03-06 15:15 | disposition home or self-care (01) ==
PROVIDERS: Visit Provider Orthopaedic Surgery
PROC: (CPT 23120; principal; 2020-03-06 10:45)
DX: M75.32 Calcific tendinitis of left shoulder (principal); M25.512 Pain in left shoulder
CPT/HCPCS: 23076; 76000; 73030; J0690; J1100; J1885; J2001; J2250; J2405; J2704; J3010; L3650

== ENCOUNTER 2020-03-14 11:23 | Outpatient (CLI) | payer BC, SELFPAY ==
--- NOTE | 2020-03-14 11:00 | DI.RAD_ITS ---
EXAM: XR SHOULDER LT 1V CLINICAL HISTORY: f/u TECHNIQUE: COMPARISON: CR XR SHOULDER LT COMPLETE 2+V from 02/11/2020 FINDINGS: Single AP view of the shoulder was obtained. The previously described soft tissue calcifications con sistent with calcific peritendinitis seen on examination of February 10 are significantly decreased on t mary's examination, with only trace visible calcifications persisting. No abnormality of the glenohu meral or acromioclavicular joints seen. IMPRESSION:
== END 2020-03-14 11:43 ==
PROVIDERS: Visit Provider Orthopaedic Surgery
DX: M25.512 Pain in left shoulder (principal); M75.32 Calcific tendinitis of left shoulder
CPT/HCPCS: 73020

== ENCOUNTER 2020-09-25 09:34 | Outpatient (CLI) | payer BC, SELFPAY ==
[2020-09-26 19:37] LABS: COVID-19 RT-PCR UVMMC Result Negative (Negative)
== END 2020-09-25 09:54 ==
DX: R51.9 Headache, unspecified (principal); J02.9 Acute pharyngitis, unspecified; R68.83 Chills (without fever)
CPT/HCPCS: U0003

== ENCOUNTER 2020-11-13 15:04 | Outpatient (REF) | payer BC, SELFPAY ==
--- NOTE | 2020-11-13 14:00 | PAPFT_PTH ---
PATIENT: Juliette Rodríguez LOC: [facility] U#:[id number] AGE/SX: 45/F ROOM: RE11/13/[address]: Bren Carrillo APRN : 1975 BED: DIS: 11/13/2020 SPEC #: [id number] RECD: 11/14/20 13:07 STATUS: TRUNG NIEVES #: [id number] MESHA: 11/13/20 14:[address]: Bren Carrillo DEPT: COUNT INCLUDES THE [facility] Cytology RECD BY: Yue John Tissues: 1 - CX/ENDOCX FOR PAP SMEARS Procedures: PAP THIN PREP/UVM Screening HPV DNA PROBE Comments: [id number]
== END 2020-11-13 15:05 | disposition home or self-care (01) ==
LOC: LBN 15:04
DX: Z12.4 Encounter for screening for malignant neoplasm of cervix (principal); Z11.51 Encounter for screening for human papillomavirus (HPV)
CPT/HCPCS: 88142; 87624

== ENCOUNTER 2023-12-19 01:26 | Outpatient (CLI) | payer OTHER, SELFPAY ==
[2023-12-19 10:16] LABS: Anion Gap 9.6 mmol/L (3-11); BUN 11 mg/dL (7-18); CO2 28.4 mmol/L (21.0-32.0); CREATININE 0.9 mg/dL (0.55-1.02); Calcium 8.8 mg/dL (8.5-10.1); Calculated LDL 145 mg/dL (<100); Chloride 104 mmol/L (98-107); Cholesterol 229 mg/dL (<200); Estimated GFR 79.35 (mL/min/1.73m2); Glucose 86 mg/dL (74-106); HDL Cholesterol 75 mg/dL (40-60); Potassium 3.6 mmol/L (3.5-5.1); Sodium 142 mmol/L (136-145); Triglyceride 49 mg/dL (<150)
[2023-12-19 18:34] LABS: HBs Antibody, Quant <3.1 mIU/mL (See Note); Hepatitis B Surface Ab Negative (See Note)
[2023-12-19 19:15] LABS: HIV-1/2 Ag & Ab Screen Negative (Negative)
[2023-12-19 19:16] LABS: Hepatitis C Ab w Rflx HCV PCR Negative (Negative)
[2023-12-20 13:25] LABS: Chlamydia Result Negative (Negative); GC Result Negative (Negative)
[2023-12-22 10:44] LABS: Syphilis Serology (RPR) Negative (Negative)
== END 2023-12-19 01:27 | disposition home or self-care (01) ==
PROVIDERS: PCP Nurse Practitioner Family; Visit Provider Nurse Practitioner Family
DX: Z11.3 Encounter for screening for infections with a predominantly sexual mode of transmission (principal); Z13.220 Encounter for screening for lipoid disorders; Z13.1 Encounter for screening for diabetes mellitus
CPT/HCPCS: 36415; 80048; 80061; 86706; 86803; 87389; 87491; 87591; 86592

== ENCOUNTER 2025-07-18 10:25 | Emergency (ER) | payer OTHER, SELFPAY ==
[2025-07-18 10:27] VITALS: BP 128/86; PULSE 73; RESP 18; TEMP 36.8; O2SAT 98
--- NOTE | 2025-07-18 10:43 | W.ED.GENAD ---
Discharge Plan Disposition Patient Disposition: Home Discharge Details Clinical Impression: Hx of falling, Traumatic ecchymosis of buttock, Acute low back pain Primary Care Provider: Chuck Rodriguez ED Provider: Sivakumar Faust Home Meds and New Rx's Prescriptions: New lidocaine [Lidoderm] 5 % adhesive patch,medicated 1 patch topical DAILY Qty: 15 0RF Rx Instructions: leave on most painful area for up to 12 hrs Continued ibuprofen 200 mg capsule 200 mg PO Q6H PRN montelukast 10 mg tablet 10 mg PO QHS Qty: 90 4RF hydroxyzine HCl 25 mg tablet 25 mg PO TID PRN (Reason: anxiety) Qty: 90 11RF bupropion HCl 300 mg tablet extended release 24 hr 300 mg PO DAILY Qty: 90 4RF Discharge Instructions Additional Instructions: You were seen in the emergency room for your back pain. Your CAT scan was reassuring against any dangerous processes. As we discussed if you lose control of your bowels or bladder if you develop any numbness or tingling between your legs or if you have any other concerns please return to the emergency department. A prescription for some patches with numbing medicine has been sent to your pharmacy. For your pain please take medications as follows: 1. Take acetaminophen (Tylenol), 1,000 mg (two 500 mg tabs) every 6 hours [2. Take ibuprofen (Advil), 400 mg every 6 hours.] HPI General Date/Time Provider Initiated Documentation: 07/18/25 10:43. HPI Narrative: MDM Primary survey intact. Reassuring shock index. On secondary survey patient has midline lower thoracic and lumbar spinal tenderness for which we will obtain CT scan without contrast. Soft nontender abdomen and given low mechanism of injury my suspicion for intra-abdominal injury is low so I did not feel that she requires CT scan of her abdomen. No trauma to chest and no hypoxia and equal breath sounds so doubt pneumothorax. No head strike to suggest intracranial hemorrhage so I did not feel patient requires CT head. No cervical spinal tenderness to suggest increased risk for cervical spinal fracture. No pain out proportion to suggest necrotizing soft tissue infection. No preceding chest pain to suggest ACS. No preceding shortness of breath to suggest PE. No saddle anesthesia nor loss of bowel or bladder control to suggest cord compression. No lower extremity numbness to suggest critical limb ischemia so I do not feel the patient required an angiogram of her abdomen pelvis with runoffs. Will treat pain with acetaminophen and ibuprofen and reassess. 1 PM I met with the patient. She was feeling well. Her CT scan was reassuring against any acute fractures. We discussed that she most likely had a contusion. I advised gradual return to activities. We discussed that she should return to the ED if she developed any numbness or tingling between her legs any weakness or any loss of bowel or bladder control. She understood her return indications and was discharged with an empiric trial of expectant outpatient management. I prescribed Lidoderm patch. HPI This is a patient with a history of anxiety presenting with back pain. The patient experienced a fall on 07/16/2025 while walking outside in the rain, during which she was carrying a chair. The chair did not fall on her, but she landed on her buttocks, resulting in bruising and a tender spot in the middle of her spine. She also reports pain on both sides, with the right side being more severe, and discomfort in her abdomen. She is unable to lean back due to the pain. She reports no vomiting or nausea and does not feel unwell. She did not hit her head or lose consciousness during the fall. She is not experiencing any difficulty breathing or chest pain. She is not currently on any blood thinners but does take medication for anxiety. She reports no numbness or tingling between her legs. This morning at work, she felt pain in her back when she kicked a mat into place. She has not lost control of her bowels or bladder and reports no numbness or tingling in her feet. Exam General: Well-appearing in no acute distress speaking in complete sentences. Head: Normocephalic, atraumatic. Eye: Extraocular eye movements intact. No conjunctival injection. No scleral icterus. Ear, nose, mouth, throat: Grossly normal inspection. Normal voice, handling secretions normally. Neck: Trachea midline. No midline cervical spinal tenderness. Cardiovascular: Well-perfused distal extremities. Respiratory: Nonlabored respiration. Clear lungs bilaterally. Gastrointestinal: Nondistended abdomen. Soft. Nontender. No rebound. No guarding. Musculoskeletal: No edema. Moving all 4 extremities spontaneously. Back: No step-offs. No deformities. Patient does have midline lower thoracic spinal tenderness. With charge nurse Archana I inspected the patient's buttocks where she had reported a bruise. There is no coccygeal tenderness. Patient does have ecchymosis on her bilateral gluteal clefts. No underlying tenderness. No fluctuance. Skin: Normal for age and race, grossly normal temperature and turgor. No acute rash. Neurologic: Alert and appropriate, no apparent acute deficits. GCS 15. Related Data Home Medications ?Medication ?Instructions ?Recorded ?Confirmed ibuprofen 200 mg capsule 200 mg PO Q6H PRN 05/11/24 07/18/25 bupropion HCl 300 mg 24 hr tablet, 300 mg PO DAILY #90 tabs 05/20/25 07/18/25 extended release hydroxyzine HCl 25 mg tablet 25 mg PO TID PRN anxiety #90 tabs 05/20/25 07/18/25 montelukast 10 mg tablet 10 mg PO QHS #90 tabs 05/20/25 07/18/25 lidocaine 5 % topical patch 1 patch topical DAILY #15 ea 07/18/25 (Lidoderm) Previous Rx's ?Medication ?Instructions ?Recorded bupropion HCl 300 mg 24 hr tablet, 300 mg PO DAILY #90 tabs 05/20/25 extended release hydroxyzine HCl 25 mg tablet 25 mg PO TID PRN anxiety #90 tabs 05/20/25 montelukast 10 mg tablet 10 mg PO QHS #90 tabs 05/20/25 lidocaine 5 % topical patch 1 patch topical DAILY #15 ea 07/18/25 (Lidoderm) Allergies Allergy/AdvReac Type Severity Reaction Status Date / Time codeine AdvReac Intermediate Dizziness/L Verified 07/18/25 10:29 ightheade escitalopram AdvReac Intermediate Low Labido Verified 07/18/25 10:29 General Stated Complaint: Orthopedic JARED: 4 Course Vital Signs Vital signs: Vital Signs Temperature 36.8 C 07/18/25 10: Pulse 73 07/18/25 10:27 Respiratory Rate 18 07/18/25 10:27 Blood Pressure 128/86 07/18/25 10:27 Pulse Oximetry 98 07/18/25 10:27 Temperature 36.8 C 07/18/25 10:27 Pulse 73 07/18/25 10:27 Respiratory Rate 18 07/18/25 10:27 Blood Pressure 128/86 07/18/25 10:27 Pulse Oximetry 98 07/18/25 10:27 Pain Level 9 07/18/25 10:27 PFSH All Active Problems (Updated 07/18/25 @ 13:01 by Sivakumar Faust MD) Acute low back pain (Acute) Traumatic ecchymosis of buttock (Acute) Hx of falling (Acute) Environmental allergies (Acute) Anxiety and depression (Chronic) JAILENE I (cervical intraepithelial neoplasia I) (Acute) 2000 a JAILENE- I. In 2000, 2001, 2002,2005,2007 were all neg Medical History (Updated 07/18/25 @ 13:01 by Sivakumar Faust MD) Routine screening for STI (sexually transmitted infection) Screening for diabetes mellitus Underweight due to inadequate caloric intake Stress and adjustment reaction Screening cholesterol level Left shoulder pain Chronic left shoulder pain Other dental procedure status Right hip pain (04/15/16) extending into right low lumbar Nonintractable episodic headache (06/17/16) Dermatitis (09/18/16) Depression (09/18/16) Contusion of right knee, subsequent encounter (09/09/16) Cervical radiculopathy (07/21/14) right cervical radiculopathy, MRI in 2006 showed DJD C3-4, C6-7 Abdominal bloating (11/20/16) Surgical History (Updated 05/20/25 @ 14:30 by Chuck Roberts NP) Calcific tendinitis Left shoulder S/P Surgical intervention 03/06/2020 History of bilateral ligation of fallopian tubes Ligation of fallopian tube 2006 at [facility] Tooth extraction Left lower tooth extraction Family History Mother No problems noted. Father Alcohol abuse Arthritis Cancer Brother No problems noted. Brother No problems noted. Brother Diabetes Depression Neoplasm Stroke Maternal Grandfather Cancer Paternal Grandfather No problems noted. Maternal Grandmother No problems noted. Paternal Grandmother No problems noted. 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 Pets and animals: Yes Pets and animals: dog(s) Sexually active: Yes Do you think of yourself as: straight/heterosexual Current gender identity: female How often do you talk on the phone with friends or family?: twice per week How often do you get together with friends or relatives?: once per week Do you belong to any clubs or organized social groups?: no Panel score (0-1 are the most socially isolated patients): 1 What type of physical activity do you participate in: walking Duration: < 15 minutes/day Frequency: daily Melanie/Oriental Orthodox: None Special melanie needs: No Seatbelt use: always Helmet use: Yes Helmet use: always Drive intox or ride w/intox team truck driver: No Do you feel safe at home: Yes Do you feel safe in your relationship?: Yes
--- NOTE | 2025-07-18 11:00 | DI.CT_ITS ---
Exam(s) CT THORACIC LUMBAR SPINE WO EXAM: CT THORACIC LUMBAR SPINE WO CLINICAL HISTORY: Midline lower thoracic upper lumbar spine tenderne. TECHNIQUE: Imaging Protocol: Axial computed tomography images with coronal and sagittal reformatted images were created and reviewed. COMPARISON: No exams were available for comparison FINDINGS: Bones: No fractures or dislocations are seen. The alignment of the spine is normal including the cervicothoracic junction and the thoracolumbar junction. Age-appropriate degenerative changes are seen in the thoracic and lumbar spine. Soft tissues: The soft tissues are unremarkable. No large disk herniations are identified. IMPRESSION: No acute fracture or subluxation in the thoracic or lumbar spine. RADIATION DOSE DELIVERED: 894.63mGy.cm Total DLP DATA REPOSITORY: All CT scans at this facility are submitted to the National Radiology Data Registry (NRDR) Dose Index Registry (DIR) with the [employer] ([employer]). RADIATION OPTIMIZATION: All CT scans at this facility use at least one of these dose optimization techniques: automated exposure control; mA and/or kV adjustment per patient size (includes targeted exams where dose is matched to clinical indication); or iterative reconstruction.
[2025-07-18] MEDS: Ibuprofen 600 MG TAB PO (11:23)
[2025-07-18] MEDS: Acetaminophen 500 MG TAB 1000 MG PO (11:23)
[2025-07-18 13:26] VITALS: BP 100/63; PULSE 64; RESP 18; TEMP 36.6; O2SAT 98
== END 2025-07-18 13:26 | disposition home or self-care (01) ==
PROVIDERS: Emergency Provider Emergency Medicine; PCP Nurse Practitioner Family
DX: M54.50 Low back pain, unspecified (principal); S30.0XXA Contusion of lower back and pelvis, initial encounter; W01.0XXA Fall on same level from slipping, tripping and stumbling without subsequent striking against object, initial encounter; Y93.01 Activity, walking, marching and hiking; Y92.89 Other specified places as the place of occurrence of the external cause
CPT/HCPCS: 99284; 72128; 72131